=== PATIENT | female | born 1990 | race Caucasian/White ===

== ENCOUNTER 2017-01-30 20:53 | Emergency (ER) | payer OTHER ==
[~2017-01-30] VITALS: Ht 165.1 cm; Wt 86.2 kg
[2017-01-30 21:00] VITALS: BP 153/94
[2017-01-30 22:48] LABS: APPEARANCE,URINE CLOUDY (CLEAR); BILIRUBIN,URINE NEGATIVE (NEGATIVE); BLOOD, URINE 2+ Ery/uL (NEGATIVE); COLOR,URINE YELLOW (YELLOW); KETONES,URINE NEGATIVE (NEGATIVE); LEUKOCYTE ESTERASE ,URINE 1+ (NEGATIVE); NITRITE, URINE NEGATIVE (NEGATIVE); PROTEIN,URINE 2+ mg/dl (NEGATIVE); UGLUCOSE NEGATIVE (NEGATIVE); UROBILINOGEN,URINE 0.2 EU/dL (0.2)
[2017-01-30 22:54] LABS: PREGNANCY TEST URINE QUAL NEGATIVE (NEGATIVE)
[2017-01-30 22:59] LABS: BACTERIA,URINE 3+ /HPF (None Seen); CALCIUM OXALATE CRYSTALS,UR Few /HPF (None Seen); SQUAMOUS EPITHELIAL CELL,UR Moderate /HPF (None Seen); WBC,URINE 81-100 /HPF (0-3)
[2017-01-30 23:00] LABS: URINE AMORPHOUS URATE Few /HPF (None Seen)
[2017-01-30] MEDS ORDERED: CEPHALEXIN MONOHYDRATE 500 MG CAPSULE PO ONE ×2 (23:30→23:41)
== END 2017-01-30 23:54 | disposition home or self-care (01) ==
LOC: ER 20:56
DX: N12 Tubulo-interstitial nephritis, not specified as acute or chronic (principal)
CPT/HCPCS: 81001; 84703; 87086 ×2; 99284; A4606; Z7610; 81000-TC

== ENCOUNTER 2017-11-27 08:58 | Emergency (ER) | payer OTHER ==
[~2017-11-27] VITALS: Ht 165.1 cm; Wt 99.8 kg
[2017-11-27 09:01] VITALS: BP 137/77
== END 2017-11-27 10:01 | disposition home or self-care (01) ==
LOC: ER 09:03
DX: J02.9 Acute pharyngitis, unspecified (principal)
CPT/HCPCS: A4606; Z7610

== ENCOUNTER 2017-12-31 08:36 | Emergency (ER) | payer OTHER ==
[~2017-12-31] VITALS: Ht 165.1 cm; Wt 99.8 kg
[2017-12-31 08:36] VITALS: BP 119/72
[2017-12-31] MEDS ORDERED: CLINDAMYCIN HCL 150 MG CAPSULE PO ONE ×2 (09:42→10:00)
[2017-12-31] MEDS ORDERED: DEXAMETHASONE 4 MG TABLET ONE (09:50)
--- NOTE | 2017-12-31 09:56 | NUR ---
Reason for non admin: Decadron 10mg PO duplicate order.
[2017-12-31] MEDS ORDERED: DEXAMETHASONE 4 MG TABLET PO ONE (10:00)
[2017-12-31] MEDS ORDERED: DEXAMETHASONE 1 MG TABLET PO ONE (10:00)
[2017-12-31] MEDS ORDERED: DEXAMETHASONE SOLN 1 MG/1 ML UDC PO ONE (10:00)
== END 2017-12-31 09:58 | disposition home or self-care (01) ==
LOC: ER 08:38
DX: J02.9 Acute pharyngitis, unspecified (principal)
CPT/HCPCS: A4606; J8540; Z7610

== ENCOUNTER 2018-10-20 11:20 | Emergency (ER) | payer OTHER ==
[~2018-10-20] VITALS: Ht 167.6 cm; Wt 95.3 kg
--- NOTE | 2018-10-20 11:40 | NUR ---
PT BROUGHT INTO EMERGENCY ROOM FOR EPIGASTRIC PAIN/NAUSEA DIZZINESS SINCE TUESDAY ALERT ORIENTED WILL CONTINUE TO MONITOR
[2018-10-20 12:21] LABS: BASOPHILS % (AUTO) 1.3 % (0.0-2.0); HEMATOCRIT 40 % (33-45); HEMOGLOBIN 13.2 g/dL (11.5-14.8); LYMPHOCYTES # (AUTO) 0.9 /CMM (0.8-4.8); LYMPHOCYTES % (AUTO) 28.8 % (20.0-44.0); MEAN CORPUSCULAR HGB CONC 33 g/dl (31.0-36.0); MEAN CORPUSCULAR VOLUME 85 fL (82-100); MONOCYTES # (AUTO) 0.5 /CMM (0.1-1.30); MONOCYTES % (AUTO) 17.4 % (2.0-12.0); NEUTROPHILS # (AUTO) 1.6 /CMM (1.8-8.9); NEUTROPHILS % (AUTO) 51.5 % (43.0-81.0); PLATELET COUNT (AUTO) 295 /CMM (150-450); RED BLOOD CELL COUNT(AUTO) 4.66 MIL/uL (4.0-5.2); WHITE BLOOD COUNT (AUTO) 3.1 K/uL (4.3-11.0)
[2018-10-20 12:27] LABS: CALCIUM, SERUM 9.3 mg/dL (8.5-10.1); CREATININE 0.7 mg/dL (0.6-1.3); POTASSIUM 3.9 mmol/L (3.5-5.1)
[2018-10-20 12:35] LABS: ALBUMIN 3.8 g/dL (3.4-5.0); BILIRUBIN,DIRECT 0.1 mg/dL (0.0-0.2); BILIRUBIN,TOTAL 0.7 mg/dL (0.2-1.0)
[2018-10-20] MEDS ORDERED: SIMETHICONE 80 MG TAB.CHEW ONE (13:06)
[2018-10-20] MEDS: SIMETHICONE 80 MG TAB.CHEW PO ONE (13:07)
--- NOTE | 2018-10-20 13:28 | NUR ---
Patient discharged to home in stable condition. Written and verbal after care instructions given. Patient verbalizes understanding of instruction.
[2018-10-20 13:29] VITALS: BP 141/80
[2018-10-20 13:31] LABS: BAND % (MANUAL) 3 % (0.0-5.0); EOSINOPHILS % (MANUAL) 2 % (0-4); LYMPHOCYTES % (MANUAL) 31 % (16-48); MONOCYTES % (MANUAL) 20 % (0-11.0); NEUTROPHILS % (MANUAL) 44 (42-76)
== END 2018-10-20 13:33 | disposition home or self-care (01) ==
LOC: ER 11:21
DX: R10.13 Epigastric pain (principal)
CPT/HCPCS: 36415; 80048; 80076; 83690; 85025; 99283; A4606

== ENCOUNTER 2020-02-01 23:38 | Emergency (ER) | payer OTHER ==
[~2020-02-01] VITALS: Ht 170.2 cm; Wt 90.7 kg
--- NOTE | 2020-02-01 23:52 | NUR ---
PT CAME TO THE ED C/O EPIGASTRIC PAIN X 1 MONTH. PT AAOX4, VSS, RESPIRATIONS EVEN AND UNLABORED ON RA W/ NAD NOTED. PT CONNECTED TO THE MUSIC ARTIST AND POX.
--- NOTE | 2020-02-01 23:54 | NUR ---
DR BECKHAM AT BEDSIDE
--- NOTE | 2020-02-01 23:54 | NUR ---
URINE COLLECTED AND SENT TO LAB
[2020-02-01] MEDS ORDERED: MAG HYDROX/AL HYDROX/SIMETH 30 ML UDC ONE (23:57)
[2020-02-01] MEDS: MAG HYDROX/AL HYDROX/SIMETH 30 ML UDC PO ONE (23:58)
--- NOTE | 2020-02-02 00:04 | NUR ---
EXCELLENCE CONSULTANT AT BEDSIDE FOR BLOOD DRAW
[2020-02-02 00:15] LABS: BASOPHILS # (AUTO) 0.1 /CMM (0.0-0.2); BASOPHILS % (AUTO) 1.4 % (0.0-2.0); EOSINOPHILS % (AUTO) 3.1 % (0.0-6.0); HEMATOCRIT 38 % (33-45); HEMOGLOBIN 12.3 g/dL (11.5-14.8); LYMPHOCYTES # (AUTO) 0.7 /CMM (0.8-4.8); LYMPHOCYTES % (AUTO) 17.7 % (20.0-44.0); MEAN CORPUSCULAR HGB CONC 33 g/dl (31.0-36.0); MEAN CORPUSCULAR VOLUME 80 fL (82-100); MONOCYTES # (AUTO) 0.5 /CMM (0.1-1.30); MONOCYTES % (AUTO) 12.2 % (2.0-12.0); NEUTROPHILS # (AUTO) 2.5 /CMM (1.8-8.9); NEUTROPHILS % (AUTO) 65.6 % (43.0-81.0); PLATELET COUNT (AUTO) 336 /CMM (150-450); RED BLOOD CELL COUNT(AUTO) 4.74 MIL/uL (4.0-5.2); WHITE BLOOD COUNT (AUTO) 3.9 K/uL (4.3-11.0)
[2020-02-02 00:21] LABS: CALCIUM, SERUM 9.4 mg/dL (8.5-10.1); CREATININE 0.8 mg/dL (0.6-1.3); POTASSIUM 3.9 mmol/L (3.5-5.1)
--- NOTE | 2020-02-02 00:36 | NUR ---
EAN AT BEDSIDE.
[2020-02-02 00:38] LABS: ALBUMIN 4.3 g/dL (3.4-5.0); BILIRUBIN,DIRECT 0.1 mg/dL (0.0-0.2); BILIRUBIN,TOTAL 0.5 mg/dL (0.2-1.0); TOTAL PROTEIN, SERUM 8.9 g/dL (6.4-8.2)
[2020-02-02 01:28] VITALS: BP 124/84
== END 2020-02-02 01:29 | disposition home or self-care (01) ==
LOC: ER 23:39
DX: K21.9 Gastro-esophageal reflux disease without esophagitis (principal)
CPT/HCPCS: 36415; 76705-TC; 80048-TC; 80076-TC; 83690-TC; 85025-TC

== ENCOUNTER → 2022-07-26 | Emergency (ER) | payer OTHER ==
[~2022-07-26] VITALS: Ht 165.1 cm; Wt 95.3 kg
[~2022-07-26] MED LIST: CAPS1ADH5 TP; IBUP-1957 PO
[2022-07-26 11:21] VITALS: BP 149/103
--- NOTE | 2022-07-26 11:21 | NUR ---
BIBS C/O BACK PAIN S/P LIFTING WEIGHTS AT THE GYM 2 WEEKS AGO AND LOSINGFORM AND HAS GOTTEN WORSE. PAIN 8/10 ON PAIN SCALE.
--- NOTE | 2022-07-26 11:49 | NUR ---
Patient discharged to home in stable condition. Written and verbal after care instructions given. Patient verbalizes understanding of instruction.
== END | disposition home or self-care (01) ==
LOC: ER 11:24
DX: M54.50 Low back pain, unspecified (principal); M54.9 Dorsalgia, unspecified

== ENCOUNTER 2024-07-14 14:44 | Emergency (ER) | payer MEDICAID, OTHER ==
[~2024-07-14] VITALS: Ht 165.1 cm; Wt 112.0 kg
[2024-07-14 15:31] LABS: BASOPHILS # (AUTO) 0.2 K/uL (0.0-0.2); EOSINOPHILS # (AUTO) 0.1 K/uL (0.0-0.7); EOSINOPHILS % (AUTO) 1.3 % (0.0-6.0); HEMATOCRIT 37 % (33-45); HEMOGLOBIN 12.1 g/dL (11.5-14.8); LYMPHOCYTES # (AUTO) 1.3 K/uL (0.8-4.8); LYMPHOCYTES % (AUTO) 24.8 % (20.0-44.0); MEAN CORPUSCULAR HEMOGLOBIN 26 PG (26.0-33.0); MEAN CORPUSCULAR HGB CONC 33 g/dl (31.0-36.0); MEAN CORPUSCULAR VOLUME 80 fL (82-100); MONOCYTES # (AUTO) 0.5 K/uL (0.1-1.30); MONOCYTES % (AUTO) 10.2 % (2.0-12.0); NEUTROPHILS # (AUTO) 3.2 K/uL (1.8-8.9); NEUTROPHILS % (AUTO) 60.7 % (43.0-81.0); PLATELET COUNT (AUTO) 305 K/uL (150-450); RED CELL DISTRIBUTION WIDTH 15.4 % (11.5-15.0); WHITE BLOOD COUNT (AUTO) 5.3 K/uL (4.3-11.0)
[2024-07-14 15:48] LABS: CALCIUM, SERUM 8.4 mg/dL (8.5-10.1); CARBON DIOXIDE 27 mmol/L (21-32); CHLORIDE 107 mmol/L (98-107); CREATININE 0.8 mg/dL (0.6-1.3); GLUCOSE 101 mg/dL (74-106); POTASSIUM 3.8 mmol/L (3.5-5.1); SODIUM SERUM 142 mmol/L (136-145); UREA NITROGEN, BLOOD 9 mg/dL (7-18)
[2024-07-14 15:55] LABS: ALANINE AMINOTRANSFERASE 21 U/L (12-78); ALBUMIN 3.6 g/dL (3.4-5.0); ALKALINE PHOSPHATASE 64 U/L (46-116); ASPARTATE AMINOTRANSFERASE 10 U/L (15-37); BILIRUBIN,DIRECT 0.1 mg/dL (0.0-0.2); BILIRUBIN,TOTAL 0.7 mg/dL (0.2-1.0); TOTAL PROTEIN, SERUM 7.4 g/dL (6.4-8.2)
[2024-07-14 15:59] LABS: THYROID STIMULATING HORMONE 1.34 uIU/mL (0.358-3.74)
[2024-07-14] MEDS: IV NS 0.9% 1,000 ML BAG IV ONE (16:25)
[2024-07-14] MEDS ORDERED: KETOROLAC TROMETHAMINE 15 MG/ML VIAL ONE (17:03)
[2024-07-14] MEDS: KETOROLAC TROMETHAMINE 15 MG/ML VIAL IV ONE (17:11)
[2024-07-14] MEDS: hydrOXYzine PAMOATE 25 MG CAPSULE PO ONE (17:12)
[2024-07-14] MEDS ORDERED: ACETAMINOPHEN 325 MG TABLET ONE (18:00)
[2024-07-14] MEDS: ACETAMINOPHEN 325 MG TABLET PO ONE (18:02)
[2024-07-14 19:49] LABS: AMPHETAMINE, URINE NEGATIVE (NEGATIVE); BARBITURATE, URINE NEGATIVE (NEGATIVE); BENZODIAZEPINE, URINE NEGATIVE (NEGATIVE); CANNABINOID, URINE NEGATIVE (NEGATIVE); COCCAINE, URINE NEGATIVE (NEGATIVE); OPIATE, URINE NEGATIVE (NEGATIVE); PHENCYCLIDINE SCREEN,URINE NEGATIVE (NEGATIVE)
[2024-07-15 01:29] VITALS: BP 131/81; TEMP 98.2; O2SAT 100
== END 2024-07-15 01:56 | disposition short-term general hospital (02) ==
LOC: ER 14:44
DX: R07.9 Chest pain, unspecified (principal); R00.2 Palpitations; R42 Dizziness and giddiness; R06.4 Hyperventilation; R06.02 Shortness of breath; R00.0 Tachycardia, unspecified; R10.2 Pelvic and perineal pain; Z60.2 Problems related to living alone
CPT/HCPCS: 99285; 96374; 71045; 96361; 93005 ×5; 85025; 80048; 80076; 85378; 36415; 84443; 84484 ×2; 83880; 84702; 80307; Q0177; J7030; J1885

== ENCOUNTER 2024-09-08 21:58 | Emergency (ER) | payer MEDICAID ==
[~2024-09-08] VITALS: Ht 162.6 cm; Wt 108.9 kg
[2024-09-08 23:13] VITALS: TEMP 98.5
[2024-09-08 23:29] VITALS: BP 127/81; O2SAT 98
[2024-09-08] MEDS: diphenhydrAMINE HCL 50 MG CAPSULE PO ONE (23:30)
[2024-09-08] MEDS ORDERED: diphenhydrAMINE HCL 50 MG CAPSULE ONE ×2 (23:31→23:32)
== END 2024-09-08 23:38 | disposition home or self-care (01) ==
LOC: ER 22:06
DX: L42 Pityriasis rosea (principal); R21 Rash and other nonspecific skin eruption; Z60.2 Problems related to living alone
CPT/HCPCS: 99282; Q0163 ×2